=== PATIENT | female | born 2000 | race Caucasian/White ===

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

== ENCOUNTER 2021-09-14 01:24 | Emergency (ER) | payer MEDICAID ==
[~2021-09-14] VITALS: Ht 149.9 cm; Wt 49.9 kg
--- NOTE | 2021-09-14 02:10 | NUR ---
TO ER BED 9. BIBS C/O LOWER BACK PAIN AND NAUSEA X TUESDAY. PT STATES SHE HAS UTI. PT DID NOT TAKE ANYTHING TO RELIEVE PAIN. URINE CUP PROVIDED TO COLLECT SAMPLE. CHANGED INTO GOWN. AWAITING MD PATTERSON
--- NOTE | 2021-09-14 02:11 | NUR ---
URINE SAMPLE COLLECTED
[2021-09-14 02:22] LABS: BILIRUBIN,URINE NEGATIVE (NEGATIVE); COLOR,URINE YELLOW (YELLOW); LEUKOCYTE ESTERASE ,URINE NEGATIVE (NEGATIVE); NITRITE, URINE NEGATIVE (NEGATIVE); PROTEIN,URINE NEGATIVE (NEGATIVE); UGLUCOSE NEGATIVE (NEGATIVE); UROBILINOGEN,URINE 0.2 EU/dL (0.2)
[2021-09-14 02:29] LABS: BACTERIA,URINE Rare /HPF (None Seen); SQUAMOUS EPITHELIAL CELL,UR Few /HPF (None Seen); WBC,URINE 0-2 /HPF (0-3)
[2021-09-14] MEDS ORDERED: IBUP-1957 PO (03:29)
[2021-09-14] MEDS ORDERED: CEPH250C PO (03:29)
[2021-09-14] MEDS ORDERED: IBUPROFEN 400 MG TABLET PO ONE (03:30)
[2021-09-14] MEDS ORDERED: IBUPROFEN 400 MG TABLET ONE (03:33)
[2021-09-14 03:40] VITALS: BP 112/70
--- NOTE | 2021-09-14 03:40 | NUR ---
Patient discharged to home in stable condition. Written and verbal after care instructions given. Patient verbalizes understanding of instruction.
== END 2021-09-14 03:41 | disposition home or self-care (01) ==
LOC: ER 01:27
DX: R10.9 Unspecified abdominal pain (principal); R30.0 Dysuria; Z87.440 Personal history of urinary (tract) infections; Z79.899 Other long term (current) drug therapy
CPT/HCPCS: 81001

== ENCOUNTER 2022-01-30 18:32 | Emergency (ER) | payer MEDICAID ==
[~2022-01-30] VITALS: Ht 144.8 cm; Wt 49.9 kg
[~2022-01-30 18:32] MED LIST: CEPH250C PO; IBUP-1957 PO
[2022-01-30 18:38] VITALS: BP 126/78
--- NOTE | 2022-01-30 18:52 | NUR ---
URINE COLLECTED AND SENT TO LAB
[2022-01-30] MEDS ORDERED: NITR100C6 PO (18:59)
[2022-01-30 19:05] LABS: BILIRUBIN,URINE NEGATIVE (NEGATIVE); COLOR,URINE ORANGE (YELLOW); LEUKOCYTE ESTERASE ,URINE MODERATE (NEGATIVE); NITRITE, URINE POSITIVE (NEGATIVE); PH,URINE 5.5 (5.0-8.0); PROTEIN,URINE 30 mg/dl (NEGATIVE); UGLUCOSE 100 MG/DL mg/dL (NEGATIVE)
--- NOTE | 2022-01-30 19:10 | NUR ---
Patient discharged to home in stable condition. Written and verbal after care instructions given. Patient verbalizes understanding of instruction.
[2022-01-30 19:34] LABS: BACTERIA,URINE 1+ /HPF (None Seen); RBC,URINE 0-2 /HPF (0-2); SQUAMOUS EPITHELIAL CELL,UR Few /HPF (None Seen); WBC,URINE 21-50 /HPF (0-3)
== END 2022-01-30 19:10 | disposition home or self-care (01) ==
LOC: ER 18:37
DX: N39.0 Urinary tract infection, site not specified (principal); Z87.440 Personal history of urinary (tract) infections; Z79.899 Other long term (current) drug therapy
CPT/HCPCS: 81001; 84703-TC; 87086-TC